=== PATIENT | female | born 1935 | race Caucasian/White ===

== ENCOUNTER 2020-07-02 06:14 | Emergency (ER) | payer MEDICARE, BC ==
[~2020-07-02] VITALS: Ht 157.5 cm; Wt 73.0 kg
[2020-07-02] MEDS ORDERED: HYDROmorphone 1 MG/ML, 1ML INJ ONE (06:59)
[2020-07-02] MEDS ORDERED: HYDROmorphone 1 MG/ML, 1ML INJ IVPush PRN (07:00)
[2020-07-02] MEDS ORDERED: SODIUM CHLORIDE FLUSH 10ML SYR IVF ONE (07:00)
[2020-07-02 07:12] LABS: BASOPHILS % (AUTO) 1 % (0-1); EOSINOPHILS % (AUTO) 1 % (1-7); LYMPHOCYTES % (AUTO) 30 % (22-44); MEAN CORPUSCULAR HGB CONC 33.8 g/dL (32.4-35.8); MEAN PLATELET VOLUME 8.6 fL (7.4-10.4); MONOCYTES % (AUTO) 7 % (2-9); NEUTROPHILS % (AUTO) 61 % (42-75); PLATELET COUNT 212 x10^3/uL (130-400); RED BLOOD COUNT 4.47 x10^6/uL (3.82-5.3); RED CELL DISTRIBUTION WIDTH 14.7 % (9.6-15.2)
[2020-07-02 07:21] LABS: ALBUMIN 3.3 g/dL (3.4-5.0); ANION GAP 8 mmol/L (5-15); CALCIUM 8.2 mg/dL (8.5-10.1); CHLORIDE 112 mmol/L (98-107)
[2020-07-02 07:26] LABS: MD NO
[2020-07-02 07:27] LABS: ALANINE AMINOTRANSFERASE 18 U/L (12-78); ALKALINE PHOSPHATASE 103 U/L (45-117); BILIRUBIN,TOTAL 0.5 mg/dL (0.2-1.0); CREATININE 0.72 mg/dL (0.55-1.02); TOTAL PROTEIN 6.7 g/dL (6.4-8.2); TROPONIN I < 0.015 ng/mL (0.000-0.045)
--- NOTE | 2020-07-02 07:47 | NUR ---
Note undone in EDM - 07/02/20 at 0752 by JOSE pa was in room. disimpacted pt. large ball of stool out. plan xr/ua/labs. pt a&ox4 gcs 15. skin intact. no abd pain/n/v/d. no health issues but pt does not go to doctor ever. walks w rolling walker. call [facility]. as
--- NOTE | 2020-07-02 07:51 | NUR ---
Note larry in ED - 07/02/20 at 0753 by JOSE pt from [facility]. paperwork from facility at bedside. as
--- NOTE | 2020-07-02 07:53 | NUR ---
pt w l side pain fell yest but only on l knee, no urinary sx. intermittent sharp L side pain, hx of gerd. piv est, meds per mar. awaiting results. as
[2020-07-02 08:02] LABS: MICROSCOPIC INDICATED
--- NOTE | 2020-07-02 08:11 | NUR ---
PT REPORTS IMPROVE DPAIN AFTER DILAUDID.
[2020-07-02] MEDS ORDERED: KETOROLAC 30 MG/1 ML IVPush ONE (09:00)
--- NOTE | 2020-07-02 09:32 | NUR ---
SPEECH EVAL ORDERED. NT SUCTIONED. ORAL SUCTIONED. V LOOSE SECRETIONS, WEAK COUGH. DECLINED MOUTH SWAB. REPOSITIONED.
[2020-07-02] MEDS ORDERED: KETOROLAC 30 MG/1 ML ONE (09:36)
[2020-07-02 09:41] VITALS: BP 111/55
--- NOTE | 2020-07-02 09:42 | NUR ---
TORADOL PER MAR, VSS, PAIN WRAPPING AROUND TO BACK BUT ONLY 2/10. AWAITING DISPO.
== END 2020-07-02 10:27 | disposition home or self-care (01) ==
LOC: ED 07:57
DX: R09.1 Pleurisy (principal); R94.31 Abnormal electrocardiogram [ECG] [EKG]; Z87.891 Personal history of nicotine dependence
CPT/HCPCS: 36415; 71045; 80053; 81001; 83690; 84484; 85025; 85379; 87086; 93005; 96374; 96375; 99285; J1170; J1885